=== PATIENT | female | born 1985 | race Two or more races ===

== ENCOUNTER 2019-10-12 10:10 | Observation (INO) | payer MEDICAID ==
[2019-10-12] MEDS ORDERED: PREN-96 PO (10:56)
[2019-10-12] MEDS ORDERED: CEPH-37 PO (10:56)
== END 2019-10-12 12:28 | disposition home or self-care (01) | DRG 563 ==
LOC: LDRP 10:10
PROVIDERS: ADMIT Obstetrics & Gynecology; ATTEND Obstetrics & Gynecology
DX: O60.03 Preterm labor without delivery, third trimester (principal); O09.213 Supervision of pregnancy with history of pre-term labor, third trimester; O09.523 Supervision of elderly multigravida, third trimester; Z3A.33 33 weeks gestation of pregnancy
CPT/HCPCS: 59025; 76818; 81002; G0378

== ENCOUNTER 2019-10-15 16:50 | Observation (INO) | payer MEDICAID ==
[~2019-10-15] VITALS: Ht 30.5 cm; Wt 0.5 kg
[~2019-10-15 16:50] MED LIST: CEPH-37 PO; PREN-96 PO
[2019-10-15] MEDS ORDERED: LACTATED RINGER'S 1,000 ML IV ONE (17:25)
[2019-10-15] MEDS ORDERED: NIFEdipine 10 MG CAP PO ONE (17:30)
[2019-10-15] MEDS: TERBUTALINE SULFATE 1 MG/ML 1ML VIAL SC SCH ×3 (17:40→19:11)
[2019-10-15] MEDS ORDERED: BETAMETHASONE ACET (6MG/ML) 5ML VIAL IM SCH (22:00)
== END 2019-10-15 20:13 | disposition home or self-care (01) | DRG 566 ==
LOC: LDRP 16:50
PROVIDERS: ADMIT Specialist; ATTEND Specialist
DX: O62.9 Abnormality of forces of labor, unspecified (principal); O26.893 Other specified pregnancy related conditions, third trimester; N89.8 Other specified noninflammatory disorders of vagina; H53.8 Other visual disturbances; Z3A.34 34 weeks gestation of pregnancy
CPT/HCPCS: 59025; 81002; 94760; 96360; 96361; 96372; G0378; J0702; J3105

== ENCOUNTER 2019-10-16 18:02 | Observation (INO) | payer MEDICAID ==
[2019-10-16] MEDS ORDERED: BETAMETHASONE ACET (6MG/ML) 5ML VIAL IM ONE (18:30)
[2019-10-17] MEDS ORDERED: NIF10C GT (07:56)
[2019-10-17] MEDS ORDERED: ACET-1156 PO (07:56)
== END 2019-10-16 20:00 | disposition home or self-care (01) | DRG 563 ==
LOC: LDRP 18:02
PROVIDERS: ADMIT Specialist; ATTEND Specialist
DX: O60.03 Preterm labor without delivery, third trimester (principal); Z3A.34 34 weeks gestation of pregnancy
CPT/HCPCS: 59025; 76818; 81002; 96372; G0378

== ENCOUNTER 2019-10-17 07:29 | Observation (INO) | payer MEDICAID ==
[~2019-10-17 07:29] MED LIST changes: -CEPH-37 PO
[2019-10-17] MEDS ORDERED: ACET-1156 PO (07:56)
[2019-10-17] MEDS ORDERED: NIF10C GT (07:56)
== END 2019-10-17 08:21 | disposition home or self-care (01) | DRG 563 ==
LOC: LDRP 07:29
PROVIDERS: ADMIT Specialist; ATTEND Specialist
DX: O60.03 Preterm labor without delivery, third trimester (principal); Z3A.34 34 weeks gestation of pregnancy
CPT/HCPCS: 59025; 81002; G0378

== ENCOUNTER 2019-10-21 18:35 | Observation (INO) | payer MEDICAID ==
[~2019-10-21 18:35] MED LIST changes: +ACET-1156 PO; +NIF10C GT
== END 2019-10-21 20:03 | disposition home or self-care (01) | DRG 566 ==
LOC: LDRP 18:35
PROVIDERS: ADMIT Specialist; ATTEND Specialist
DX: O62.9 Abnormality of forces of labor, unspecified (principal); Z3A.34 34 weeks gestation of pregnancy
CPT/HCPCS: 59025; 76817; 76818; 81002; G0378

== ENCOUNTER 2019-10-24 18:56 | Observation (INO) | payer MEDICAID | END 2019-10-24 20:25 | disposition home or self-care (01) | DRG 566 | LOC: LDRP 18:56 | PROVIDERS: ADMIT Specialist; ATTEND Specialist | DX: O62.9 Abnormality of forces of labor, unspecified (principal); Z3A.35 35 weeks gestation of pregnancy | CPT/HCPCS: 59025; 76818; 81002; G0378 ==

== ENCOUNTER 2019-11-01 18:52 | Observation (INO) | payer MEDICAID ==
[2019-11-01 19:49] LABS: Urine Bacteria MOD /hpf (None Seen); Urine Blood Negative /uL (Negative); Urine Specific Gravity 1.008 (1.001-1.035); Urine WBC 6 /hpf (0 - 5)
== END 2019-11-01 21:24 | disposition home or self-care (01) | DRG 563 ==
LOC: LDRP 18:52
PROVIDERS: ADMIT Specialist; ATTEND Specialist
DX: O60.03 Preterm labor without delivery, third trimester (principal); O26.893 Other specified pregnancy related conditions, third trimester; R10.30 Lower abdominal pain, unspecified; R35.0 Frequency of micturition; R30.9 Painful micturition, unspecified; R19.7 Diarrhea, unspecified; H53.8 Other visual disturbances; O21.2 Late vomiting of pregnancy; Z3A.36 36 weeks gestation of pregnancy
CPT/HCPCS: 59025; 76817; 76818; 81001; 81002; 84112; G0378; Q0114

== ENCOUNTER 2019-11-04 22:40 | Inpatient (IN) | payer MEDICAID ==
[~2019-11-04] VITALS: Ht 162.6 cm; Wt 70.3 kg
[2019-11-05] MEDS ORDERED: LACTATED RINGER'S 1,000 ML IV SCH (00:34)
[2019-11-05] MEDS ORDERED: LACT. RINGERS/OXYTOCIN 20UNITS 1,000 ML IV SCH (00:34)
[2019-11-05] MEDS ORDERED: LIDOCAINE 2%HCL (LOCAL ANESTH.) INJ 20ML MDV ID ONE (00:45)
[2019-11-05] MEDS ORDERED: WITCH HAZEL-GLYCERIN PAD TOP PRN (00:45)
[2019-11-05] MEDS ORDERED: PENICILLIN G POT 5MIL/D5 50ML 50 ML IV ONE (00:45)
[2019-11-05] MEDS ORDERED: METHYLERGONOVINE MALEATE 0.2 MG/ML AMP IM PRN (00:45)
[2019-11-05] MEDS ORDERED: DERMOPLAST 60ML BOTTLE TOP PRN (00:45)
[2019-11-05] MEDS ORDERED: PHISODERM TOP SOLN 240ML BTL TOP PRN (00:45)
[2019-11-05] MEDS ORDERED: OXYTOCIN 10UNIT/ML 1ML VIAL ONE (01:22)
[2019-11-05] MEDS ORDERED: OXYTOCIN 10UNIT/ML 1ML VIAL IM ONE (01:30)
[2019-11-05 02:18] LABS: Basophils # (auto) 0 10 ^3/uL (0-0.2); Basophils % (auto) 0.5 % (0.0-2.0); Eosinophils # (auto) 0 10 ^3/uL (0-0.8); Eosinophils % (auto) 0.4 % (0.0-7.0); Hematocrit 42.2 % (36.0-46.0); Lymphocytes # (auto) 2.3 10 ^3/uL (0.4-5.4); Lymphocytes % (auto) 22.9 % (10.0-50.0); Mean Corpuscular Hemoglobin 27.5 pg (28.0-32.0); Mean Corpuscular Hgb Conc. 33.2 g/dL (32.0-36.0); Mean Corpuscular Volume 82.8 fL (80.0-100.0); Monocytes # (auto) 0.5 10 ^3/uL (0-1.3); Neutrophils # (auto) 7.3 10 ^3/uL (1.6-8.6); Neutrophils % (auto) 71.2 % (37.0-80.0); Nucleated Red Blood Cells % 0.1 %; Platelet Count (auto) 157 10^3/uL (140-450); Red Cell Distribution Width 13.8 % (11.8-14.3); White Blood Cell 10.2 10^3/uL (4.4-10.8)
[2019-11-05 02:21] LABS: Urine Amorphous Crystal FEW /hpf (None Seen); Urine Bacteria FEW /hpf (None Seen); Urine WBC 1 /hpf (0 - 5)
[2019-11-05 02:22] LABS: Urine Blood Negative /uL (Negative); Urine Specific Gravity 1.007 (1.001-1.035)
[2019-11-05 02:33] LABS: Albumin 2.5 g/dL (3.4-5.0); Calcium 9.2 mg/dL (8.5-10.1); Potassium 3.7 mmol/L (3.5-5.1)
[2019-11-05 02:35] LABS: INR 0.92 (0.9-1.15); Partial Thromboplastin Time 24.4 sec (23.0-31.2)
[2019-11-05 02:36] LABS: BUN/Creatinine Ratio 14.4; Bilirubin, Total 0.2 mg/dL (0.2-1.0); Total Protein 6.5 g/dL (6.4-8.2)
[2019-11-05 02:41] LABS: Alcohol, Urine < 3.0 mg/dL (0-10); Amphetamine Screen, Urine NEGATIVE (NEGATIVE); Barbiturate Scree,Urine NEGATIVE (NEGATIVE); Benzodiazephine Screen, Urine NEGATIVE (NEGATIVE); Cannabinoid Screen, Urine NEGATIVE (NEGATIVE); Cocaine Screen, Urine NEGATIVE (NEGATIVE); Opiate Scree,Urine NEGATIVE (NEGATIVE); Phencyclidine Screen, Urine NEGATIVE (NEGATIVE)
[2019-11-05] MEDS ORDERED: ACETAMINOPHEN 325 MG TAB PO PRN (03:00)
--- NOTE | 2019-11-05 03:15 | NUR ---
Ambulation: Patient OOB with standby assistance by RN. Patient ambulated to bathroom with steady gait. Patient able to void 500ML without difficulty. [facility] teaching provided with returned demonstration by patient. Clean gown provided and bed linen changed. Patient ambulated back to bed with steady gait and no distress noted.
[2019-11-05] MEDS: IBUPROFEN 600 MG TAB PO PRN ×2 (03:41→13:15)
[2019-11-05] MEDS ORDERED: PENICILLIN G POTASSIUM 2,500,000 UNITS in D5W 5% 50 ML IV SCH (04:45)
[2019-11-05 06:50] VITALS: BP 132/67
--- NOTE | 2019-11-05 10:00 | NUR ---
Teaching: Reviewed information in [facility] booklet with patient. Discussed benefits of and risks associated with not . Discussed different positions, proper latch, feeding cues, and baby-led . Provided information of medication side effects related to . All questions and concerns addressed at this time. Patient verbalized understanding of information.
[2019-11-05 12:30] VITALS: BP 123/75
[2019-11-05 15:00] VITALS: BP 130/77
[2019-11-05 19:00] VITALS: BP 134/78
[2019-11-05 23:00] VITALS: BP 135/77
[2019-11-06 02:51] VITALS: BP 117/61
[2019-11-06 05:11] LABS: RPR Non Reactive (Non Reactive)
[2019-11-06 06:50] VITALS: BP 131/78
--- NOTE | 2019-11-06 09:45 | NUR ---
Discharge: Discharge instructions given as ordered. Pt encouraged to follow up with [facility] DIRECTOR as instructed. All questions and concerns addressed. Patient verbalized understanding. Medication reconciliation completed and copy given to patient. All required/requested vaccines given and copies of vaccinations given to patient. Patient encouraged to prepare to depart unit.
[2019-11-06 11:04] VITALS: BP 125/69
--- NOTE | 2019-11-06 11:05 | NUR ---
Discharge: Patient ambulates to vehicle with all personal belongings, accompanied by staff and family member. No distress noted at time of departure, no adverse changes in status since initial assessment.
== END 2019-11-06 11:05 | disposition home or self-care (01) | DRG 560 ==
LOC: OBSVTOIN 22:40 → LDRP 22:40
PROVIDERS: ADMIT Specialist; ATTEND Specialist
PROC: 10E0XZZ Delivery of Products of Conception, External Approach (ICD-10-PCS; principal; 2019-11-05)
DX: O62.3 Precipitate labor (principal); Z37.0 Single live birth; Z86.32 Personal history of gestational diabetes; Z3A.37 37 weeks gestation of pregnancy; Z20.828 Contact with and (suspected) exposure to other viral communicable diseases
CPT/HCPCS: 36415; 59025; 59409; 80053; 80307; 81001; 81002; 84112; 85025; 85610; 85730; 86592; 86850; 86900; 86901; 96360; 96361; 96365; 96372; G0378; J2540; J2590; J7060

== ENCOUNTER 2021-12-06 13:11 | Inpatient (IN) | payer MEDICAID ==
[~2021-12-06] VITALS: Ht 162.6 cm; Wt 41.0 kg
[~2021-12-06 13:11] MED LIST changes: -NIF10C GT
[2021-12-06 15:23] LABS: Basophils # (auto) 0.1 10 ^3/uL (0-0.2); Lymphocytes % (auto) 9.9 % (10.0-50.0); Mean Corpuscular Hgb Conc. 31.4 g/dL (32.0-36.0); Neutrophils % (auto) 83.8 % (37.0-80.0)
[2021-12-06 15:25] LABS: Basophils % (auto) 0.5 % (0.0-2.0); Eosinophils # (auto) 0.2 10 ^3/uL (0-0.8); Eosinophils % (auto) 0.9 % (0.0-7.0); Hematocrit 46.8 % (36.0-46.0); Hemoglobin 14.7 g/dL (12.2-16.2); Lymphocytes # (auto) 1.8 10 ^3/uL (0.4-5.4); Mean Corpuscular Hemoglobin 21.7 pg (28.0-32.0); Mean Corpuscular Volume 69.2 fL (80.0-100.0); Monocytes # (auto) 0.9 10 ^3/uL (0-1.3); Monocytes % (auto) 4.9 % (0.0-12.0); Neutrophils # (auto) 15.1 10 ^3/uL (1.6-8.6); Nucleated Red Blood Cells % 0.1 %; Red Blood Cells 6.77 10^6/uL (4.0-5.20); Red Cell Distribution Width 17.4 % (11.8-14.3)
[2021-12-06] MEDS ORDERED: SODIUM CHLORIDE 0.9% 1,000 ML IV ONE (15:30)
[2021-12-06 15:39] LABS: Alanine Aminotransferase 55 U/L (13-56); Albumin 3.8 g/dL (3.4-5.0); Anion Gap 16 (5-15); Aspartate Aminotransferase 18 U/L (15-37); BUN/Creatinine Ratio 14.2; Blood Urea Nitrogen 16 mg/dL (7-18); Calcium 8.4 mg/dL (8.5-10.1); Carbon Dioxide 17 mmol/L (21-32); Chloride 94 mmol/L (98-107); GFR African American 70 mL/min; GFR Non-African American 58 mL/min; Glucose 148 mg/dL (74-106); Magnesium 1.8 mg/dL (1.6-2.6); Sodium 127 mmol/L (136-145)
[2021-12-06 15:44] LABS: Alkaline Phosphatase 128 U/L (45-117); Bilirubin, Total 0.5 mg/dL (0.2-1.0); Total Protein 7.8 g/dL (6.4-8.2)
[2021-12-06 15:57] LABS: Potassium 1.9 mmol/L (3.5-5.1)
[2021-12-06] MEDS ORDERED: D5W/ SOD CHL 0.9%/KCL 20MEQ 1,000 ML IV ONE (16:00)
[2021-12-06] MEDS: POTASSIUM EFFERVESENT TAB 25 MEQ PO ONE ×2 (16:00→20:03)
[2021-12-06] MEDS ORDERED: HYDROmorphone HCL 2 MG/ML VL/or syr IV ONE (17:00)
[2021-12-06] MEDS: ONDANSETRON HCL 4 MG/2 ML VIAL IV ONE ×2 (17:01→18:13)
[2021-12-06] MEDS ORDERED: CEFEPIME 1GM/ 50ML 50 ML IV ONE (17:45)
[2021-12-06] MEDS ORDERED: LACTATED RINGER'S 1,000 ML IV ONE (17:45)
[2021-12-06] MEDS ORDERED: VANCOMYCIN 1GM/250ML 250 ML IV ONE (18:45)
[2021-12-06] MEDS ORDERED: ACETAMINOPHEN 325 MG TAB PO PRN (20:00)
[2021-12-06] MEDS: HYDROmorphone HCL 2 MG/ML VL/or syr IV PRN (22:10)
[2021-12-06] MEDS ORDERED: ALBUMIN 5% 250 ML IV ONE (23:30)
[2021-12-06] MEDS: ALBUMIN 25% 100 ML IV SCH (23:49)
[2021-12-07] VITALS (36 sets, daily range): BP systolic 78–156; BP diastolic 44–68
[2021-12-07] MEDS: ALBUMIN 25% 100 ML IV SCH (01:04)
[2021-12-07 05:23] LABS: Basophils # (auto) 0.1 10 ^3/uL (0-0.2); Eosinophils # (auto) 0.4 10 ^3/uL (0-0.8); Eosinophils % (auto) 4.3 % (0.0-7.0); Hemoglobin 10.1 g/dL (12.2-16.2); Lymphocytes # (auto) 2.5 10 ^3/uL (0.4-5.4); Lymphocytes % (auto) 24.5 % (10.0-50.0); Mean Corpuscular Hemoglobin 22.3 pg (28.0-32.0); Mean Corpuscular Hgb Conc. 32.6 g/dL (32.0-36.0); Mean Corpuscular Volume 68.2 fL (80.0-100.0); Monocytes # (auto) 0.8 10 ^3/uL (0-1.3); Monocytes % (auto) 8.1 % (0.0-12.0); Neutrophils # (auto) 6.3 10 ^3/uL (1.6-8.6); Neutrophils % (auto) 62.1 % (37.0-80.0); Red Blood Cells 4.54 10^6/uL (4.0-5.20); Red Cell Distribution Width 16.9 % (11.8-14.3); White Blood Cell 10.1 10^3/uL (4.4-10.8)
[2021-12-07 05:28] LABS: Albumin 3.7 g/dL (3.4-5.0); Calcium 7.2 mg/dL (8.5-10.1)
[2021-12-07 05:31] LABS: Bilirubin, Total 0.6 mg/dL (0.2-1.0); Total Protein 5.8 g/dL (6.4-8.2)
[2021-12-07 05:37] LABS: Potassium 2.1 mmol/L (3.5-5.1)
[2021-12-07] MEDS ORDERED: POTASSIUM CHL 20 Meq TABLET PO SCH (06:30)
[2021-12-07] MEDS ORDERED: POTASSIUM CHL 20MEQ/100ML 100 ML IV SCH (07:30)
[2021-12-07] MEDS: PHENYLEPHRINE IV 250 ML IV SCH ×2 (08:13→15:50)
[2021-12-07] MEDS: HYDROmorphone HCL 2 MG/ML VL/or syr IV PRN ×4 (09:07→22:30)
[2021-12-07] MEDS ORDERED: CEFEPIME 1GM/ 50ML 50 ML IV SCH (10:00)
[2021-12-07] MEDS ORDERED: POTASSIUM CHLORIDE 60 MEQ, LIDOCAINE 1% (LOCAL ANESTH.) 6 ML in SODIUM CHL 0.9% 500 ML IV ONE (10:15)
[2021-12-07] MEDS ORDERED: DEXTROSE (50%) 50ML SYRG IV PRN (12:00)
[2021-12-07] MEDS: ACCU-CHEK COMFORT CURVE STRIP VI SCH ×2 (12:00→18:04)
[2021-12-07] MEDS ORDERED: POTASSIUM EFFERVESENT TAB 25 MEQ GT ONE (12:00)
[2021-12-07 18:14] LABS: Urine Bacteria NONE SEEN /hpf (None Seen); Urine Blood 2+ /uL (Negative); Urine Mucus FEW (None Seen); Urine Specific Gravity 1.016 (1.001-1.035); Urine WBC 3 /hpf (0 - 5)
[2021-12-07] MEDS: ONDANSETRON HCL 4 MG/2 ML VIAL IV PRN (18:43)
[2021-12-07] MEDS: SODIUM CHLORIDE 0.9% 1,000 ML IV SCH (20:00)
[2021-12-07] MEDS: CEFEPIME 1GM/ 50ML 50 ML IV SCH (22:41)
[2021-12-07 22:55] LABS: % Iron Saturation 6.8 % (15-50)
[2021-12-07] MEDS ORDERED: POTASSIUM EFFERVESENT TAB 25 MEQ PO ONE (23:15)
[2021-12-08] VITALS (19 sets, daily range): BP systolic 98–151; BP diastolic 56–120
[2021-12-08] MEDS: PHENYLEPHRINE IV 250 ML IV SCH ×3 (00:10→16:50)
[2021-12-08] MEDS: HYDROmorphone HCL 2 MG/ML VL/or syr IV PRN ×6 (02:10→22:24)
[2021-12-08 04:50] LABS: BUN/Creatinine Ratio 11.3
[2021-12-08] MEDS: ACCU-CHEK COMFORT CURVE STRIP VI SCH ×5 (06:00→22:57)
[2021-12-08] MEDS: CEFEPIME 1GM/ 50ML 50 ML IV SCH ×3 (06:00→21:10)
[2021-12-08] MEDS ORDERED: POTASSIUM EFFERVESENT TAB 25 MEQ ONE (06:58)
[2021-12-08] MEDS ORDERED: POTASSIUM EFFERVESENT TAB 25 MEQ PO ONE (07:00)
[2021-12-08] MEDS ORDERED: POTASSIUM CHL 20 Meq TABLET PO ONE ×2 (09:30→11:30)
[2021-12-08] MEDS ORDERED: MAGNESIUM OXIDE 400 MG TAB PO ONE (09:30)
[2021-12-08] MEDS: SODIUM CHLORIDE 0.9% 1,000 ML IV SCH (10:20)
[2021-12-08] MEDS: D5W/SOD CHL 0.45%/KCL 20MEQ 1,000 ML IV SCH (12:00)
[2021-12-08] MEDS ORDERED: POTASSIUM PHOSPHATE 44 MEQ in D5W 5% 250 ML IV ONE (16:30)
[2021-12-08] MEDS: ONDANSETRON HCL 4 MG/2 ML VIAL IV PRN (20:21)
[2021-12-08] MEDS: MUPIROCIN 2% OINT 15gm or 22gm FOR MRSA NARES EACHNOSTRI SCH (21:09)
[2021-12-09] VITALS (7 sets, daily range): BP systolic 86–102; BP diastolic 55–70
[2021-12-09] MEDS: PHENYLEPHRINE IV 250 ML IV SCH (01:10)
[2021-12-09] MEDS: SODIUM CHLORIDE 0.9% 1,000 ML IV SCH (01:32)
[2021-12-09] MEDS: HYDROmorphone HCL 2 MG/ML VL/or syr IV PRN ×5 (02:43→20:24)
[2021-12-09] MEDS: CEFEPIME 1GM/ 50ML 50 ML IV SCH (05:54)
[2021-12-09] MEDS: ACCU-CHEK COMFORT CURVE STRIP VI SCH ×5 (05:54→23:49)
[2021-12-09] MEDS: D5W/SOD CHL 0.45%/KCL 20MEQ 1,000 ML IV SCH (09:22)
[2021-12-09] MEDS: MAGNESIUM OXIDE 400 MG TAB PO SCH (10:31)
[2021-12-09 11:18] LABS: Basophils # (auto) 0.1 10 ^3/uL (0-0.2); Eosinophils # (auto) 0.2 10 ^3/uL (0-0.8); Monocytes # (auto) 0.6 10 ^3/uL (0-1.3); Neutrophils # (auto) 8.3 10 ^3/uL (1.6-8.6)
[2021-12-09 11:20] LABS: Basophils % (auto) 1.2 % (0.0-2.0); Eosinophils % (auto) 2.1 % (0.0-7.0); Hematocrit 37.3 % (36.0-46.0); Hemoglobin 11.7 g/dL (12.2-16.2); Lymphocytes # (auto) 2.9 10 ^3/uL (0.4-5.4); Lymphocytes % (auto) 23.7 % (10.0-50.0); Mean Corpuscular Hgb Conc. 31.5 g/dL (32.0-36.0); Mean Corpuscular Volume 69.8 fL (80.0-100.0); Monocytes % (auto) 4.8 % (0.0-12.0); Neutrophils % (auto) 68.2 % (37.0-80.0); Nucleated Red Blood Cells % 0.1 %; Red Blood Cells 5.34 10^6/uL (4.0-5.20); Red Cell Distribution Width 17.4 % (11.8-14.3); White Blood Cell 12.1 10^3/uL (4.4-10.8)
[2021-12-09 11:49] LABS: Calcium 7.6 mg/dL (8.5-10.1); Potassium 3.6 mmol/L (3.5-5.1)
[2021-12-09] MEDS: MUPIROCIN 2% OINT 15gm or 22gm FOR MRSA NARES EACHNOSTRI SCH ×2 (12:02→21:48)
[2021-12-09] MEDS: ONDANSETRON HCL 4 MG/2 ML VIAL IV PRN (21:45)
[2021-12-10] MEDS: HYDROmorphone HCL 2 MG/ML VL/or syr IV PRN ×6 (00:29→20:24)
[2021-12-10 05:00] VITALS: BP 97/65
[2021-12-10] MEDS: ACCU-CHEK COMFORT CURVE STRIP VI SCH ×3 (06:00→18:53)
[2021-12-10] MEDS: cefTRIAXone 1GM/50ML D5W 50 ML IV SCH (08:54)
[2021-12-10 08:59] VITALS: BP 104/71
[2021-12-10] MEDS: MUPIROCIN 2% OINT 15gm or 22gm FOR MRSA NARES EACHNOSTRI SCH ×2 (09:36→22:00)
[2021-12-10] MEDS: MAGNESIUM OXIDE 400 MG TAB PO SCH (09:38)
[2021-12-10] MEDS: D5W/SOD CHL 0.45%/KCL 20MEQ 1,000 ML IV SCH (09:39)
[2021-12-10 13:00] VITALS: BP 102/65
[2021-12-10 17:00] VITALS: BP 106/78
[2021-12-10 18:55] LABS: BUN/Creatinine Ratio 17.2; Calcium 7.7 mg/dL (8.5-10.1)
[2021-12-10 19:43] LABS: Potassium 2.9 mmol/L (3.5-5.1)
[2021-12-10] MEDS: POTASSIUM CHL 20MEQ/100ML 100 ML IV SCH ×2 (20:45→22:45)
[2021-12-10 22:00] VITALS: BP 114/73
[2021-12-10] MEDS: POTASSIUM CHLORIDE 40 MEQ in SOD CHL 0.45% 1,000 ML IV SCH (23:01)
[2021-12-11] MEDS: HYDROmorphone HCL 2 MG/ML VL/or syr IV PRN ×5 (01:02→20:19)
[2021-12-11 05:22] VITALS: BP 104/75
[2021-12-11] MEDS: ONDANSETRON HCL 4 MG/2 ML VIAL IV PRN ×2 (05:50→15:20)
[2021-12-11] MEDS: ACCU-CHEK COMFORT CURVE STRIP VI SCH ×4 (06:00→18:40)
[2021-12-11] MEDS ORDERED: POTASSIUM CHL 20MEQ/100ML 0 ML IV ONE (06:57)
[2021-12-11] MEDS ORDERED: POTASSIUM CHL 20MEQ/100ML 100 ML IV ONE (07:30)
[2021-12-11] MEDS ORDERED: POTASSIUM CHL 20 Meq TABLET PO ONE (07:30)
[2021-12-11] MEDS ORDERED: POTASSIUM PHOSPHATE 26.4 MEQ in SODIUM CHL 0.9% 100 ML IV ONE (07:45)
[2021-12-11] MEDS: MAGNESIUM SULFATE 1GM/100ML 100 ML IV SCH ×3 (08:14→10:11)
[2021-12-11] MEDS ORDERED: POTASSIUM EFFERVESENT TAB 25 MEQ PO ONE (08:15)
[2021-12-11 09:13] LABS: Hemoglobin 12.3 g/dL (12.2-16.2); Mean Corpuscular Hemoglobin 22.1 pg (28.0-32.0); Monocytes # (auto) 0.5 10 ^3/uL (0-1.3)
[2021-12-11 09:14] LABS: Basophils # (auto) 0.1 10 ^3/uL (0-0.2); Basophils % (auto) 0.6 % (0.0-2.0); Eosinophils # (auto) 0.1 10 ^3/uL (0-0.8); Eosinophils % (auto) 1.4 % (0.0-7.0); Hematocrit 38.9 % (36.0-46.0); Lymphocytes % (auto) 20.1 % (10.0-50.0); Mean Corpuscular Hgb Conc. 31.7 g/dL (32.0-36.0); Mean Corpuscular Volume 69.5 fL (80.0-100.0); Monocytes % (auto) 5.3 % (0.0-12.0); Neutrophils # (auto) 7.2 10 ^3/uL (1.6-8.6); Neutrophils % (auto) 72.6 % (37.0-80.0); Red Blood Cells 5.59 10^6/uL (4.0-5.20); Red Cell Distribution Width 17.3 % (11.8-14.3); White Blood Cell 9.9 10^3/uL (4.4-10.8)
[2021-12-11 09:15] VITALS: BP_SYST 125; BP_SYST 97; BP_DIAS 72; BP_DIAS 75
[2021-12-11 09:34] LABS: Magnesium 2.6 mg/dL (1.6-2.6); Potassium 3.3 mmol/L (3.5-5.1)
[2021-12-11] MEDS: MUPIROCIN 2% OINT 15gm or 22gm FOR MRSA NARES EACHNOSTRI SCH ×2 (10:10→21:06)
[2021-12-11] MEDS: MAGNESIUM OXIDE 400 MG TAB PO SCH (10:11)
[2021-12-11] MEDS: cefTRIAXone 1GM/50ML D5W 50 ML IV SCH (11:52)
[2021-12-11 13:00] VITALS: BP_SYST 120; BP_SYST 126; BP_DIAS 78; BP_DIAS 83
[2021-12-11] MEDS: POTASSIUM CHLORIDE 40 MEQ in SOD CHL 0.45% 1,000 ML IV SCH (17:01)
[2021-12-11 22:00] VITALS: BP 95/76
[2021-12-12] MEDS: HYDROmorphone HCL 2 MG/ML VL/or syr IV PRN ×5 (04:04→21:40)
[2021-12-12] MEDS: ONDANSETRON HCL 4 MG/2 ML VIAL IV PRN ×3 (04:05→17:31)
[2021-12-12 05:00] VITALS: BP 109/78
[2021-12-12] MEDS: ACCU-CHEK COMFORT CURVE STRIP VI SCH ×4 (05:43→18:18)
[2021-12-12 09:00] VITALS: BP 106/76
[2021-12-12] MEDS: cefTRIAXone 1GM/50ML D5W 50 ML IV SCH (09:26)
[2021-12-12] MEDS: MUPIROCIN 2% OINT 15gm or 22gm FOR MRSA NARES EACHNOSTRI SCH ×2 (10:29→21:38)
[2021-12-12] MEDS: MAGNESIUM OXIDE 400 MG TAB PO SCH (10:29)
[2021-12-12 13:00] VITALS: BP 110/81
[2021-12-12] MEDS: POTASSIUM CHLORIDE 40 MEQ in SOD CHL 0.45% 1,000 ML IV SCH (16:18)
[2021-12-12 22:00] VITALS: BP 104/84
[2021-12-13] MEDS: HYDROmorphone HCL 2 MG/ML VL/or syr IV PRN ×5 (01:34→23:04)
[2021-12-13 05:00] VITALS: BP 118/81
[2021-12-13] MEDS: ACCU-CHEK COMFORT CURVE STRIP VI SCH ×4 (05:25→18:31)
[2021-12-13] MEDS: ONDANSETRON HCL 4 MG/2 ML VIAL IV PRN ×2 (05:29→18:46)
[2021-12-13 06:02] LABS: Basophils # (auto) 0 10 ^3/uL (0-0.2); Eosinophils # (auto) 0 10 ^3/uL (0-0.8); Mean Corpuscular Hemoglobin 22.1 pg (28.0-32.0); Monocytes # (auto) 0.9 10 ^3/uL (0-1.3)
[2021-12-13 06:06] LABS: Basophils % (auto) 0.3 % (0.0-2.0); Eosinophils % (auto) 0.2 % (0.0-7.0); Hematocrit 42.9 % (36.0-46.0); Hemoglobin 13.6 g/dL (12.2-16.2); Lymphocytes % (auto) 19.4 % (10.0-50.0); Mean Corpuscular Hgb Conc. 31.7 g/dL (32.0-36.0); Mean Corpuscular Volume 69.6 fL (80.0-100.0); Monocytes % (auto) 8.6 % (0.0-12.0); Neutrophils # (auto) 7.3 10 ^3/uL (1.6-8.6); Neutrophils % (auto) 71.5 % (37.0-80.0); Nucleated Red Blood Cells % 0.2 %; Red Blood Cells 6.16 10^6/uL (4.0-5.20); Red Cell Distribution Width 17.6 % (11.8-14.3); White Blood Cell 10.2 10^3/uL (4.4-10.8)
[2021-12-13 06:16] LABS: Albumin 3.9 g/dL (3.4-5.0); BUN/Creatinine Ratio 11.9; Bilirubin, Total 0.4 mg/dL (0.2-1.0); Calcium 8.2 mg/dL (8.5-10.1); Magnesium 2.6 mg/dL (1.6-2.6); Phosphorus 4.3 mg/dL (2.5-4.90); Total Protein 6.9 g/dL (6.4-8.2)
[2021-12-13 06:23] LABS: Potassium 2.6 mmol/L (3.5-5.1)
[2021-12-13] MEDS ORDERED: POTASSIUM CHLORIDE 40 MEQ, LIDOCAINE 1% (LOCAL ANESTH.) 4 ML in SODIUM CHL 0.9% 250 ML IV ONE (08:30)
[2021-12-13] MEDS ORDERED: POTASSIUM CHL 20 Meq TABLET PO ONE ×2 (08:30→22:15)
[2021-12-13] MEDS ORDERED: SOD CHL 0.9%/ KCL 40MEQ 1,000 ML IV ONE (08:30)
[2021-12-13 09:00] VITALS: BP 116/73
[2021-12-13] MEDS: cefTRIAXone 1GM/50ML D5W 50 ML IV SCH (10:01)
[2021-12-13] MEDS: MUPIROCIN 2% OINT 15gm or 22gm FOR MRSA NARES EACHNOSTRI SCH (10:02)
[2021-12-13] MEDS: MAGNESIUM OXIDE 400 MG TAB PO SCH (10:02)
[2021-12-13] MEDS ORDERED: PROMETHAZINE HCL 25 MG/ML 1ML IV PRN (11:30)
[2021-12-13] MEDS ORDERED: PROMETHAZINE HCL 25 MG/ML 1ML IV ONE (11:30)
[2021-12-13] MEDS ORDERED: PANTOPRAZOLE 40 MG/10 ML VIAL INJ IV ONE (11:30)
[2021-12-13 13:00] VITALS: BP 132/77
[2021-12-13] MEDS: METOCLOPRAMIDE HCL 5MG/ml INJ 2ml VIAL IV SCH ×2 (13:13→22:00)
[2021-12-13 17:00] VITALS: BP 125/87
[2021-12-13 22:00] VITALS: BP 108/76
[2021-12-13] MEDS: PANTOPRAZOLE 40 MG/10 ML VIAL INJ IV SCH (22:00)
[2021-12-13] MEDS ORDERED: POTASSIUM CHLORIDE 20 MEQ, LIDOCAINE 1% (LOCAL ANESTH.) 2 ML in SODIUM CHL 0.9% 100 ML IV ONE (22:15)
[2021-12-14] MEDS: ACCU-CHEK COMFORT CURVE STRIP VI SCH ×5 (00:11→23:14)
[2021-12-14 02:59] LABS: BUN/Creatinine Ratio 15.3; Calcium 8.5 mg/dL (8.5-10.1); Magnesium 2.3 mg/dL (1.6-2.6); Phosphorus 2.8 mg/dL (2.5-4.90)
[2021-12-14] MEDS: HYDROmorphone HCL 2 MG/ML VL/or syr IV PRN ×5 (03:07→22:38)
[2021-12-14 05:00] VITALS: BP 113/74
[2021-12-14] MEDS: METOCLOPRAMIDE HCL 5MG/ml INJ 2ml VIAL IV SCH ×3 (06:00→21:39)
[2021-12-14 09:00] VITALS: BP 123/81
[2021-12-14] MEDS: cefTRIAXone 1GM/50ML D5W 50 ML IV SCH (09:00)
[2021-12-14] MEDS: PANTOPRAZOLE 40 MG/10 ML VIAL INJ IV SCH ×2 (10:38→21:39)
[2021-12-14] MEDS: MAGNESIUM OXIDE 400 MG TAB PO SCH (10:39)
[2021-12-14] MEDS: LOPERAMIDE HCL 2 MG CAP/TAB PO PRN (12:37)
[2021-12-14 13:00] VITALS: BP 127/79
[2021-12-14 16:51] VITALS: BP 128/88
[2021-12-14] MEDS ORDERED: POTASSIUM CHL 20 Meq TABLET PO ONE (17:30)
[2021-12-14 22:00] VITALS: BP 126/86
[2021-12-15] MEDS: HYDROmorphone HCL 2 MG/ML VL/or syr IV PRN ×5 (02:49→20:21)
[2021-12-15 05:00] VITALS: BP 99/77
[2021-12-15] MEDS: METOCLOPRAMIDE HCL 5MG/ml INJ 2ml VIAL IV SCH ×3 (05:23→22:00)
[2021-12-15] MEDS: ACCU-CHEK COMFORT CURVE STRIP VI SCH ×3 (05:23→18:56)
[2021-12-15 07:29] LABS: BUN/Creatinine Ratio 19.3; Calcium 8.7 mg/dL (8.5-10.1); Magnesium 2.2 mg/dL (1.6-2.6)
[2021-12-15 08:02] LABS: Potassium 2.9 mmol/L (3.5-5.1)
[2021-12-15] MEDS ORDERED: POTASSIUM CHL 20 Meq TABLET PO ONE (08:30)
[2021-12-15 08:54] VITALS: BP 106/79
[2021-12-15] MEDS: cefTRIAXone 1GM/50ML D5W 50 ML IV SCH (09:00)
[2021-12-15] MEDS: MAGNESIUM OXIDE 400 MG TAB PO SCH (10:00)
[2021-12-15] MEDS: PANTOPRAZOLE 40 MG/10 ML VIAL INJ IV SCH ×2 (10:40→22:00)
[2021-12-15] MEDS: POTASSIUM CHL 20MEQ/100ML 100 ML IV SCH ×2 (10:40→13:33)
[2021-12-15] MEDS ORDERED: POTASSIUM EFFERVESENT TAB 25 MEQ PO ONE (11:00)
[2021-12-15] MEDS: LOPERAMIDE HCL 2 MG CAP/TAB PO PRN ×2 (12:30→22:07)
[2021-12-15 13:00] VITALS: BP 99/73
[2021-12-15 16:33] VITALS: BP 129/90
[2021-12-15] MEDS ORDERED: POTASSIUM CHLORIDE 20 MEQ, LIDOCAINE 1% (LOCAL ANESTH.) 2 ML in SODIUM CHL 0.9% 100 ML IV ONE (16:45)
[2021-12-15] MEDS: ONDANSETRON HCL 4 MG/2 ML VIAL IV PRN (20:16)
[2021-12-15 22:00] VITALS: BP 113/74
[2021-12-15] MEDS: OCTREOTIDE ACETATE 100 MCG/ML VL SUBCUT SCH (22:00)
[2021-12-16] MEDS: ACCU-CHEK COMFORT CURVE STRIP VI SCH ×4 (00:05→18:17)
[2021-12-16] MEDS: HYDROmorphone HCL 2 MG/ML VL/or syr IV PRN ×5 (01:08→20:25)
[2021-12-16 05:00] VITALS: BP 101/63
[2021-12-16 05:25] LABS: Calcium 7.8 mg/dL (8.5-10.1); Magnesium 1.7 mg/dL (1.6-2.6); Phosphorus 2.2 mg/dL (2.5-4.90)
[2021-12-16 05:37] LABS: Potassium 2.4 mmol/L (3.5-5.1)
[2021-12-16] MEDS: OCTREOTIDE ACETATE 100 MCG/ML VL SUBCUT SCH ×2 (06:00→14:00)
[2021-12-16] MEDS: METOCLOPRAMIDE HCL 5MG/ml INJ 2ml VIAL IV SCH ×3 (06:00→22:00)
[2021-12-16] MEDS ORDERED: POTASSIUM EFFERVESENT TAB 25 MEQ PO ONE ×4 (06:45→10:45)
[2021-12-16 09:00] VITALS: BP 100/70
[2021-12-16] MEDS: MAGNESIUM OXIDE 400 MG TAB PO SCH (09:23)
[2021-12-16] MEDS: LOPERAMIDE HCL 2 MG CAP/TAB PO PRN ×3 (09:24→15:34)
[2021-12-16] MEDS: cefTRIAXone 1GM/50ML D5W 50 ML IV SCH (09:24)
[2021-12-16] MEDS: PANTOPRAZOLE 40 MG/10 ML VIAL INJ IV SCH ×2 (09:24→22:00)
[2021-12-16] MEDS ORDERED: POTASSIUM PHOSPHATE 44 MEQ in D5W 5% 250 ML IV ONE ×2 (09:30→16:00)
[2021-12-16] MEDS ORDERED: POTASSIUM CHLORIDE 60 MEQ, LIDOCAINE 1% (LOCAL ANESTH.) 6 ML in SODIUM CHL 0.9% 500 ML IV ONE (09:30)
[2021-12-16 13:00] VITALS: BP 97/55
[2021-12-16 16:47] VITALS: BP 99/63
[2021-12-16] MEDS ORDERED: POTASSIUM CHL 20 Meq TABLET PO ONE ×2 (18:15→22:00)
[2021-12-16] MEDS ORDERED: SODIUM BICARBONATE 8.4 % INJ 50ML VIAL IV ONE (18:15)
[2021-12-16] MEDS: Ensure Enlive Chocolate 8oz Bottle PO SCH (18:17)
[2021-12-16] MEDS ORDERED: SODIUM CHLORIDE 0.9% 1,000 ML IV ONE (19:00)
[2021-12-16 22:00] VITALS: BP 106/75
[2021-12-16] MEDS: LOPERAMIDE HCL 2 MG CAP/TAB PO ONE ×3 (22:00→23:14)
[2021-12-16] MEDS: SODIUM BICARBONATE 650 MG TAB PO SCH ×3 (22:00→23:10)
[2021-12-17] MEDS: HYDROmorphone HCL 2 MG/ML VL/or syr IV PRN ×5 (00:53→21:11)
[2021-12-17 05:00] VITALS: BP 104/73
[2021-12-17] MEDS: METOCLOPRAMIDE HCL 5MG/ml INJ 2ml VIAL IV SCH ×3 (06:00→22:00)
[2021-12-17] MEDS: SODIUM BICARBONATE 650 MG TAB PO SCH ×4 (06:00→22:00)
[2021-12-17] MEDS: ACCU-CHEK COMFORT CURVE STRIP VI SCH ×5 (06:07→23:52)
[2021-12-17 07:08] LABS: BUN/Creatinine Ratio 16.9; Calcium 7.8 mg/dL (8.5-10.1); Magnesium 1.4 mg/dL (1.6-2.6); Phosphorus 1.8 mg/dL (2.5-4.90)
[2021-12-17] MEDS: Ensure Enlive Chocolate 8oz Bottle PO SCH ×3 (08:00→18:00)
[2021-12-17 08:05] LABS: Potassium 2.7 mmol/L (3.5-5.1)
[2021-12-17 09:00] VITALS: BP 111/74
[2021-12-17] MEDS: cefTRIAXone 1GM/50ML D5W 50 ML IV SCH (09:00)
[2021-12-17] MEDS ORDERED: POTASSIUM CHL 20 Meq TABLET PO ONE (09:30)
[2021-12-17] MEDS: SODIUM BICARBONATE 50ML VIAL 150 ML in D5W 5% 1,000 ML IV SCH (09:30)
[2021-12-17] MEDS ORDERED: POTASSIUM EFFERVESENT TAB 25 MEQ PO ONE (09:30)
[2021-12-17] MEDS: MAGNESIUM OXIDE 400 MG TAB PO SCH (10:00)
[2021-12-17] MEDS: PANTOPRAZOLE 40 MG/10 ML VIAL INJ IV SCH ×2 (10:14→22:00)
[2021-12-17] MEDS: NEUTRA-PHOS TABLET PO SCH ×2 (12:00→18:00)
[2021-12-17] MEDS ORDERED: HYDROmorphone HCL 2 MG/ML VL/or syr IV ONE (12:00)
[2021-12-17 13:00] VITALS: BP 97/67
[2021-12-17] MEDS: POTASSIUM CHL 20 Meq TABLET PO SCH ×2 (14:00→22:00)
[2021-12-17 16:43] VITALS: BP 103/75
[2021-12-17] MEDS ORDERED: POTASSIUM PHOSPHATE 44 MEQ in D5W 5% 250 ML IV ONE ×2 (17:00→20:00)
[2021-12-17 22:00] VITALS: BP 106/76
[2021-12-18] VITALS (8 sets, daily range): BP systolic 97–107; BP diastolic 63–72
[2021-12-18] MEDS ORDERED: HYDROcodone-ACET 5/325MG TAB PO PRN (00:30)
[2021-12-18] MEDS: HYDROmorphone HCL 2 MG/ML VL/or syr IV PRN ×4 (02:56→22:14)
[2021-12-18] MEDS: METOCLOPRAMIDE HCL 5MG/ml INJ 2ml VIAL IV SCH ×3 (06:00→21:29)
[2021-12-18] MEDS: SODIUM BICARBONATE 650 MG TAB PO SCH ×4 (06:00→21:17)
[2021-12-18] MEDS: POTASSIUM CHL 20 Meq TABLET PO SCH (06:00)
[2021-12-18] MEDS: ACCU-CHEK COMFORT CURVE STRIP VI SCH ×4 (06:20→23:57)
[2021-12-18 06:24] LABS: Calcium 7.3 mg/dL (8.5-10.1)
[2021-12-18 06:28] LABS: BUN/Creatinine Ratio 12.5; Phosphorus 2.7 mg/dL (2.5-4.90)
[2021-12-18 06:37] LABS: Potassium 2.9 mmol/L (3.5-5.1)
[2021-12-18] MEDS: NEUTRA-PHOS TABLET PO SCH ×3 (08:00→18:00)
[2021-12-18] MEDS: Ensure Enlive Chocolate 8oz Bottle PO SCH ×3 (08:00→18:00)
[2021-12-18] MEDS: SODIUM BICARBONATE 50ML VIAL 150 ML in D5W 5% 1,000 ML IV SCH ×2 (08:30→09:51)
[2021-12-18] MEDS: cefTRIAXone 1GM/50ML D5W 50 ML IV SCH (09:50)
[2021-12-18] MEDS: MAGNESIUM OXIDE 400 MG TAB PO SCH (09:51)
[2021-12-18] MEDS: POTASSIUM CHL 20MEQ/100ML 100 ML IV SCH ×3 (10:09→15:44)
[2021-12-18] MEDS: PANTOPRAZOLE 40 MG/10 ML VIAL INJ IV SCH ×2 (10:09→21:16)
[2021-12-18] MEDS: ONDANSETRON HCL 4 MG/2 ML VIAL IV PRN (14:57)
[2021-12-18] MEDS ORDERED: SODIUM BICARBONATE 50ML VIAL 150 ML in D5W 5% 1,000 ML IV SCH (15:30)
[2021-12-18] MEDS: MAGNESIUM SULFATE 1GM/100ML 100 ML IV SCH ×3 (17:16→19:20)
[2021-12-18] MEDS ORDERED: MAGNESIUM SULFATE 1GM/100ML 100 ML IV SCH (22:00)
[2021-12-18] MEDS ORDERED: POTASSIUM CHL 20MEQ/100ML 100 ML IV SCH (23:00)
[2021-12-19] VITALS (7 sets, daily range): BP systolic 89–107; BP diastolic 64–72
[2021-12-19] MEDS: HYDROmorphone HCL 2 MG/ML VL/or syr IV PRN ×4 (04:25→22:24)
[2021-12-19] MEDS: METOCLOPRAMIDE HCL 5MG/ml INJ 2ml VIAL IV SCH (06:00)
[2021-12-19] MEDS: SODIUM BICARBONATE 650 MG TAB PO SCH ×4 (06:00→22:24)
[2021-12-19] MEDS: ACCU-CHEK COMFORT CURVE STRIP VI SCH ×4 (06:07→23:53)
[2021-12-19 06:52] LABS: BUN/Creatinine Ratio 10.3; Calcium 6.6 mg/dL (8.5-10.1)
[2021-12-19 07:09] LABS: Potassium 2.6 mmol/L (3.5-5.1)
[2021-12-19] MEDS: Ensure Enlive Chocolate 8oz Bottle PO SCH ×3 (08:00→18:00)
[2021-12-19] MEDS: NEUTRA-PHOS TABLET PO SCH ×3 (10:10→18:00)
[2021-12-19] MEDS: PANTOPRAZOLE 40 MG/10 ML VIAL INJ IV SCH ×2 (10:10→22:24)
[2021-12-19] MEDS: MAGNESIUM OXIDE 400 MG TAB PO SCH (10:10)
[2021-12-19] MEDS: cefTRIAXone 1GM/50ML D5W 50 ML IV SCH (10:10)
[2021-12-19] MEDS: POTASSIUM EFFERVESENT TAB 25 MEQ PO SCH ×2 (10:11→22:26)
[2021-12-19] MEDS: ONDANSETRON HCL 4 MG/2 ML VIAL IV PRN (12:27)
[2021-12-19] MEDS: POTASSIUM CHL 20MEQ/100ML 100 ML IV SCH ×3 (13:47→16:01)
[2021-12-19] MEDS: CALCIUM CARB 500 MG CHEW TAB PO SCH ×2 (13:48→18:00)
[2021-12-19] MEDS: CALCIUM GLUC 1,000mg/50ml-NS 50 ML IV SCH ×2 (13:55→16:35)
[2021-12-20] MEDS ORDERED: POTASSIUM CHL 20MEQ/100ML 100 ML IV ONE (02:30)
[2021-12-20 05:00] VITALS: BP 95/63
[2021-12-20] MEDS: HYDROmorphone HCL 2 MG/ML VL/or syr IV PRN ×2 (05:52→12:40)
[2021-12-20] MEDS: SODIUM BICARBONATE 650 MG TAB PO SCH ×3 (06:06→18:00)
[2021-12-20] MEDS: ACCU-CHEK COMFORT CURVE STRIP VI SCH ×3 (06:07→18:00)
[2021-12-20 06:45] LABS: Anion Gap 8 (5-15); BUN/Creatinine Ratio 5.9; Blood Urea Nitrogen 2 mg/dL (7-18); Calcium 6.6 mg/dL (8.5-10.1); Carbon Dioxide 22 mmol/L (21-32); Chloride 109 mmol/L (98-107); GFR African American 279 mL/min; GFR Non-African American 230 mL/min; Glucose 62 mg/dL (74-106); Potassium 3.1 mmol/L (3.5-5.1); Sodium 139 mmol/L (136-145)
[2021-12-20] MEDS: Ensure Enlive Chocolate 8oz Bottle PO SCH ×3 (08:00→18:00)
[2021-12-20 08:30] VITALS: BP 94/63
[2021-12-20] MEDS: CALCIUM CARB 500 MG CHEW TAB PO SCH ×3 (09:05→18:00)
[2021-12-20] MEDS: POTASSIUM EFFERVESENT TAB 25 MEQ PO SCH (09:05)
[2021-12-20] MEDS: MAGNESIUM OXIDE 400 MG TAB PO SCH (09:06)
[2021-12-20] MEDS: PANTOPRAZOLE 40 MG/10 ML VIAL INJ IV SCH (09:06)
[2021-12-20] MEDS: NEUTRA-PHOS TABLET PO SCH ×3 (09:06→18:00)
[2021-12-20] MEDS: cefTRIAXone 1GM/50ML D5W 50 ML IV SCH (09:06)
[2021-12-20 12:30] VITALS: BP 119/65
[2021-12-20] MEDS ORDERED: CALC500T6 PO (13:49)
[2021-12-20] MEDS ORDERED: MAGN400T40 PO (13:49)
[2021-12-20] MEDS ORDERED: POTA-220 PO (13:50)
[2021-12-20] MEDS ORDERED: SODI650T PO (13:51)
[2021-12-20 13:53] LABS: Basophils # (auto) 0.1 10 ^3/uL (0-0.2); Eosinophils # (auto) 0.2 10 ^3/uL (0-0.8); Mean Corpuscular Hemoglobin 22.2 pg (28.0-32.0); Neutrophils # (auto) 4.3 10 ^3/uL (1.6-8.6); Red Cell Distribution Width 17.2 % (11.8-14.3)
[2021-12-20 13:55] LABS: Basophils % (auto) 0.8 % (0.0-2.0); Eosinophils % (auto) 2.5 % (0.0-7.0); Hematocrit 36.6 % (36.0-46.0); Hemoglobin 11.7 g/dL (12.2-16.2); Lymphocytes # (auto) 1.7 10 ^3/uL (0.4-5.4); Lymphocytes % (auto) 26.1 % (10.0-50.0); Mean Corpuscular Volume 69.3 fL (80.0-100.0); Monocytes # (auto) 0.3 10 ^3/uL (0-1.3); Monocytes % (auto) 5.3 % (0.0-12.0); Neutrophils % (auto) 65.3 % (37.0-80.0); Nucleated Red Blood Cells % 0.1 %; Red Blood Cells 5.28 10^6/uL (4.0-5.20); White Blood Cell 6.5 10^3/uL (4.4-10.8)
[2021-12-20 17:00] VITALS: BP 99/66
[2021-12-20 17:53] VITALS: BP 99/66
== END 2021-12-20 18:47 | disposition home or self-care (01) | DRG 720 ==
LOC: ER 13:11 → TELE 19:57 → ICU WEST 12-07 07:48 → TELE-WESTW 12-09 08:13 → WEST WING 12-09 19:55 → TELE-WESTW 12-15 17:29
PROVIDERS: ADMIT Nurse Practitioner Family; ATTEND Internal Medicine
PROC: 05HA33Z Insertion of Infusion Device into Left Brachial Vein, Percutaneous Approach (ICD-10-PCS; principal; 2021-12-13)
PROC: B54NZZA Ultrasonography of Left Upper Extremity Veins, Guidance (ICD-10-PCS; 2021-12-13)
DX: A41.9 Sepsis, unspecified organism (principal); R65.21 Severe sepsis with septic shock; I50.21 Acute systolic (congestive) heart failure; N17.9 Acute kidney failure, unspecified; C78.7 Secondary malignant neoplasm of liver and intrahepatic bile duct; E86.0 Dehydration; E87.6 Hypokalemia; K52.9 Noninfective gastroenteritis and colitis, unspecified; D50.9 Iron deficiency anemia, unspecified; E83.39 Other disorders of phosphorus metabolism; Z20.822 Contact with and (suspected) exposure to COVID-19; E83.42 Hypomagnesemia; R94.31 Abnormal electrocardiogram [ECG] [EKG]; Z88.5 Allergy status to narcotic agent; Z93.3 Colostomy status
CPT/HCPCS: 36415; 71045; 76700; 80048; 80053; 81001; 81025; 82962; 83540; 83550; 83735; 83880; 84100; 84132; 84484; 84702; 85025; 87040; 87045; 87081; 87427; 87493; 93005; 93306; 96365; 96366; 96367; 96375; 99291; C9113; G0378; J0696; J2001; J2405; J3480; J7060; P9047

== ENCOUNTER 2021-12-27 05:43 | Emergency (ER) | payer MEDICAID ==
[~2021-12-27] VITALS: Ht 162.6 cm; Wt 54.4 kg
[~2021-12-27 05:43] MED LIST changes: +CALC500T6 PO; +MAGN400T40 PO; +POTA-220 PO; +SODI650T PO
[2021-12-27] MEDS ORDERED: HYDROmorphone HCL 2 MG/ML VL/or syr IV ONE (07:30)
[2021-12-27] MEDS ORDERED: ONDANSETRON HCL 4 MG/2 ML VIAL IV ONE (07:30)
[2021-12-27 07:56] LABS: Basophils # (auto) 0.1 10 ^3/uL (0-0.2); Eosinophils # (auto) 0.1 10 ^3/uL (0-0.8); Eosinophils % (auto) 1.5 % (0.0-7.0); Monocytes # (auto) 0.3 10 ^3/uL (0-1.3); White Blood Cell 6.7 10^3/uL (4.4-10.8)
[2021-12-27 07:58] LABS: Basophils % (auto) 1.7 % (0.0-2.0); Hematocrit 33.6 % (36.0-46.0); Hemoglobin 10.4 g/dL (12.2-16.2); Lymphocytes # (auto) 2.2 10 ^3/uL (0.4-5.4); Lymphocytes % (auto) 33.5 % (10.0-50.0); Mean Corpuscular Hemoglobin 22.5 pg (28.0-32.0); Mean Corpuscular Hgb Conc. 30.9 g/dL (32.0-36.0); Mean Corpuscular Volume 72.8 fL (80.0-100.0); Monocytes % (auto) 4.2 % (0.0-12.0); Neutrophils % (auto) 59.1 % (37.0-80.0); Red Blood Cells 4.61 10^6/uL (4.0-5.20); Red Cell Distribution Width 18.2 % (11.8-14.3)
[2021-12-27 08:17] LABS: Albumin 2.5 g/dL (3.4-5.0); Calcium 8.2 mg/dL (8.5-10.1); Potassium 3.9 mmol/L (3.5-5.1)
[2021-12-27 08:21] LABS: BUN/Creatinine Ratio 10.3; Bilirubin, Total 0.4 mg/dL (0.2-1.0); Total Protein 5.3 g/dL (6.4-8.2)
[2021-12-27] MEDS ORDERED: ONDANSETRON HCL 4 MG/2 ML VIAL IM ONE (11:00)
[2021-12-27] MEDS ORDERED: HYDROmorphone HCL 2 MG/ML VL/or syr IM ONE (11:00)
[2021-12-27 11:07] VITALS: BP 110/74
== END 2021-12-27 11:09 | disposition home or self-care (01) ==
LOC: ER 05:43 → EDBD 05:43 → ER 11:09
DX: G89.4 Chronic pain syndrome (principal); Z88.6 Allergy status to analgesic agent
CPT/HCPCS: 36415; 80053; 84484; 85025; 96372; 99284; J1170; J2405